=== PATIENT | male | born 1980 | race Caucasian/White ===

== ENCOUNTER 2019-03-09 11:26 | Emergency (ER) | payer MEDICAID ==
[~2019-03-09] VITALS: Ht 182.9 cm; Wt 98.0 kg
[2019-03-09 11:31] VITALS: BP 163/90
[2019-03-09] MEDS ORDERED: HYDROcodone/APAP 5/325 TABLET ONE (12:36)
[2019-03-09] MEDS ORDERED: HYDROcodone/APAP 5/325 TABLET PO ONE (13:00)
[2019-04-14] MEDS ORDERED: ATOR40TA78 PO (12:37)
[2019-04-14] MEDS ORDERED: ASPI81TA45 PO (12:37)
[2019-04-14] MEDS ORDERED: LISI-167 PO (12:37)
== END 2019-03-09 14:17 | disposition home or self-care (01) ==
LOC: ED 14:11
DX: S70.01XA Contusion of right hip, initial encounter (principal); S50.812A Abrasion of left forearm, initial encounter; S50.811A Abrasion of right forearm, initial encounter; S70.211A Abrasion, right hip, initial encounter; V27.0XXA Motorcycle driver injured in collision with fixed or stationary object in nontraffic accident, initial encounter; Y93.89 Activity, other specified; Y92.89 Other specified places as the place of occurrence of the external cause; Y99.8 Other external cause status
CPT/HCPCS: 72192; 99284

== ENCOUNTER → 2019-06-01 | Outpatient (CLI) | payer MEDICAID ==
[~2019-06-01] MED LIST: ASPI81TA45 PO; ATOR40TA78 PO; LISI-167 PO
== END | disposition home or self-care (01) ==
LOC: CVU 08:36
PROVIDERS: ATTEND Internal Medicine Cardiovascular Disease
DX: R07.89 Other chest pain (principal); I10 Essential (primary) hypertension; Z82.49 Family history of ischemic heart disease and other diseases of the circulatory system; Z87.891 Personal history of nicotine dependence
CPT/HCPCS: 93306